=== PATIENT | female | born 1950 | race Caucasian/White ===

== ENCOUNTER 2019-03-27 02:43 | Inpatient (IN) | payer MEDICARE, BC ==
[~2019-03-27] VITALS: Ht 165.1 cm; Wt 64.2 kg
[2019-03-27] VITALS (9 sets, daily range): BP systolic 120–218; BP diastolic 59–107
--- NOTE | ~2019-03-27 | EKG ---
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
--- NOTE | ~2019-03-27 | EKG ---
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
--- NOTE | ~2019-03-27 | EKG ---
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
[2019-03-27] MEDS ORDERED: ASPIRIN CHEWABL81 MG PO (02:48)
[2019-03-27] MEDS ORDERED: SYNTHROID,LEVO75 MCG PO (02:50)
[2019-03-27 03:17] LABS: BASO % 0.4 % (0.0-1.0); EOS # 0.2 10*3/uL (0.0-0.4); EOS % 1.5 % (1.0-4.0); HEMOGLOBIN 14.9 g/dl (12.0-16.0); LYMPH # 4.2 10*3/uL (1.3-4.4); LYMPH % 42.7 % (27.0-41.0); MEAN CELL VOLUME 92.4 fl (81.0-99.0); MEAN CORPUSCULAR HGB 30.6 pg (27.0-31.0); MEAN CORPUSCULAR HGB CONC 33.1 g/dl (33.0-37.0); MEAN PLATELET VOLUME 11.4 fl (9.6-12.3); MONO # 0.7 10*3/uL (0.1-1.0); MONO % 6.9 % (3.0-9.0); NEUT # 4.7 10*3/uL (2.3-7.9); NEUT % 48.2 % (47.0-73.0); PLATELET COUNT AUTOMATED 274 10*3/uL (130-400); RED BLOOD COUNT 4.87 10*6/uL (4.10-5.10); RED CELL DISTRI WIDTH 12.5 % (0-14.5); WHITE BLOOD COUNT 9.8 10*3/uL (4.8-10.8)
[2019-03-27 03:28] LABS: ACT PARTIAL THROMBO TIME 22.4 SECONDS (20.8-31.5); INTERNATIONAL NORM RATIO 0.9 (2.0-3.5)
[2019-03-27 03:36] LABS: ALBUMIN 3.7 gm/dl (3.1-4.5); ALKALINE PHOSPHATASE 200 U/L (45-117); BUN 25 mg/dl (7-24); CHLORIDE 103 mmol/L (98-107); CREATININE 1.21 mg/dL (0.55-1.02); SGOT/AST 23 IU/L (3-35); SGPT/ALT 25 U/L (12-78); SODIUM 140 mmol/L (136-145); TOTAL PROTEIN 7.7 gm/dL (6.4-8.2)
[2019-03-27 03:38] LABS: TROPONIN I < 0.015 ng/ml (<0.045)
--- NOTE | 2019-03-27 05:32 | NUR ---
A 68, admitted to 4E, under the services of JULY Hernandez DO with a diagnosis of HYPERTENSIVE EMERGENCY WITHOUT CHF. Chief complaint is PAIN, ACUTE. Patient arrived via bed from ER. Monitor applied. Initial assessment completed. Vital signs taken and recorded. JULY HERNANDEZ DO notified of admission to the unit. Orders received. See assessment for past medical history, medications and allergies. Patient and/or family oriented to unit. [facility] visitation policy reviewed. Clothing/patient valuable form completed. REY PETERSON
--- NOTE | 2019-03-27 09:00 | NUR ---
It Business Analyst in to talk to patient. Patient states lives at home with . There are few steps in the home. Physician: out of state Pharmacy: out of state Home health services: none Patient's level of ADLs: INDEPENDENT Patient has working utilities: all working DME: none Follow-up physician's appointment after d/c: patient will make follow up appointment with her family doctor Does patient want to access PORTAL?: no Discharge plan discussed with patient, present, patient states she lives out of state. her came to this area to work and she came with him, she also stated that she would be going back home in a few days. patient states she will follow up with her family doctor when she gets back home. case mangement will follow for any needs while patient is in this facility. EMELYN BEGUM
[2019-03-27] MEDS ORDERED: AMLODIPINE BESYL5 MG PO (12:38)
--- NOTE | 2019-03-27 14:06 | NUR ---
PT DISCHARGED HOME VIA WHEELCHAIR WITH HER . PRESCRIPTION GIVEN TO PT. [place] AND PUBLIC INTERVIEWER DISCONTINUED.
[2019-03-29] MEDS ORDERED: LISINOPRIL10 M1 PO (08:21)
== END 2019-03-27 13:10 | disposition home or self-care (01) | DRG 304 ==
LOC: ED 02:43 → EDHOLD 04:37 → 4E 05:10
PROVIDERS: Emergency Medicine; ADMIT Internal Medicine
DX: I16.1 Hypertensive emergency (principal); N17.0 Acute kidney failure with tubular necrosis; E89.0 Postprocedural hypothyroidism; Z90.49 Acquired absence of other specified parts of digestive tract; Z85.840 Personal history of malignant neoplasm of eye; Z82.5 Family history of asthma and other chronic lower respiratory diseases; Z80.8 Family history of malignant neoplasm of other organs or systems; Z79.899 Other long term (current) drug therapy; Z79.82 Long term (current) use of aspirin